=== PATIENT | female | born 1980 | race Asian ===

== ENCOUNTER 2018-08-14 10:21 | Inpatient (IN) | payer OTHER ==
[~2018-08-14] VITALS: Ht 157.5 cm; Wt 66.7 kg
[~2018-08-14 10:21] MED LIST: LEVO500T6 PO; SYN.1 PO
[2018-08-14 10:28] VITALS: BP 87/51
--- NOTE | 2018-08-14 10:39 | NUR ---
PATIENT WHEELCHAIR ASSISTED TO BED 4.
[2018-08-14] MEDS ORDERED: NACL 0.9% 1,000 ML IV ONE ×2 (10:44)
[2018-08-14] MEDS ORDERED: PIPERACILLIN/TAZOBACTAM 3.375 GM in DEXTROSE 5% 50 ML IV ONE (10:45)
[2018-08-14] MEDS ORDERED: ACETAMINOPHEN 325 MG TAB PO ONE (10:45)
--- NOTE | 2018-08-14 10:54 | NUR ---
LAB AT BEDSIDE
--- NOTE | 2018-08-14 10:58 | NUR ---
BIB BROTHER WITH C/O ABDOMINAL PAIN, +NAUSEA, NO VOMITING OR DIARRHEA. TEMP 102.0 ORALLY. HX OF DOWN SYNDROME. PT CONNECTED TO MONITOR. SIDERAIL UP X1 FOR SAFETY.
--- NOTE | 2018-08-14 11:01 | NUR ---
JUANA EMT AT BEDSIDE FOR EKG
--- NOTE | 2018-08-14 11:06 | NUR ---
PT AMB TO BATHROOM WITH ASSISTANCE
[2018-08-14] MEDS ORDERED: PIPERACILLIN/TAZOBACTAM 3.375 GM VIAL IV ONE (11:07)
--- NOTE | 2018-08-14 11:07 | NUR ---
X RAY AT BEDSIDE.
[2018-08-14 11:12] LABS: BASOPHILS % (AUTO) 0.2 % (0.0-2.0); EOSINOPHILS % (AUTO) 0.2 % (0.0-4.0); HEMATOCRIT 42.5 % (36-48); HEMOGLOBIN 14.2 g/dL (12.0-16.0); LYMPHOCYTES # (AUTO) 0.3 K/uL (2.5-16.5); LYMPHOCYTES % (AUTO) 3.1 % (20.5-51.1); MEAN CORPUSCULAR HEMOGLOBIN 33 pg (27-31); MEAN CORPUSCULAR HGB CONC 34 g/dL (33-37); MEAN CORPUSCULAR VOLUME 98.9 fL (80-94); MONOCYTES % (AUTO) 0.5 % (1.7-9.3); NEUTROPHILS # (AUTO) 8.5 K/uL (1.8-7.7); PLATELET COUNT (AUTO) 131 K/uL (140-450); RED CELL DISTRIBUTION WIDTH 13.5 % (11.6-13.7); WHITE BLOOD COUNT (AUTO) 8.8 K/uL (4.8-10.8)
--- NOTE | 2018-08-14 11:15 | NUR ---
NEW TEMP IS 101.3
[2018-08-14 11:25] LABS: PROTHROMBIN TIME 10.1 secs (10.8-13.4)
[2018-08-14 11:25] LABS: APPEARANCE,URINE SL CLOUDY (CLEAR); BILIRUBIN,URINE NEGATIVE (NEGATIVE); BLOOD, URINE 3+ (NEGATIVE); COLOR,URINE DARK YELLOW (YELLOW); LEUKOCYTE ESTERASE ,URINE 1+ (NEGATIVE); NITRITE, URINE POSITIVE (NEGATIVE); UGLUCOSE NEGATIVE (NEGATIVE)
[2018-08-14 11:30] LABS: RBC,URINE TOO NUMEROUS TO COUN /HPF (0-5); WBC,URINE >25 (MANY) /HPF (0-5)
[2018-08-14 11:31] LABS: ANION GAP 12.8 (8-16); CARBON DIOXIDE 25.7 mmol/L (21-32); POTASSIUM 3.5 mmol/L (3.5-5.1)
[2018-08-14 11:42] LABS: ALBUMIN 3.2 g/dL (3.4-5.0)
[2018-08-14] MEDS ORDERED: LORazepam 2 MG/ML VIAL IM/IVP PRN (12:15)
[2018-08-14] MEDS ORDERED: HYDROcodone/APAP 5/325 MG 1 TAB TAB PO PRN (12:15)
[2018-08-14] MEDS ORDERED: ACETAMINOPHEN 325 MG TAB PO PRN (12:15)
[2018-08-14] MEDS ORDERED: DOCUSATE SODIUM 100 MG GELCAP PO PRN (12:15)
[2018-08-14] MEDS ORDERED: MORPHINE SULFATE 2 MG/ML SYR IVP PRN (12:15)
[2018-08-14] MEDS ORDERED: ZOLPIDEM 5 MG TAB PO PRN (12:15)
[2018-08-14] MEDS ORDERED: ONDANSETRON 4 MG/2 ML VIAL IM/IVP PRN (12:15)
[2018-08-14] MEDS: NACL 0.9% 1,000 ML IV SCH ×2 (12:15→21:37)
[2018-08-14 12:49] LABS: PROTHROMBIN TIME 9.9 secs (10.8-13.4)
[2018-08-14 12:55] LABS: CHOL/HDL RATIO 2.9 (1-4.5); MAGNESIUM 1.9 mg/dL (1.8-2.4); PHOSPHORUS 2.7 mg/dL (2.5-4.9); THYROID STIMULATING HORMONE 4.77 uIU/mL (0.34-3.74)
--- NOTE | 2018-08-14 13:00 | NUR ---
PT ARRIVED ON THE UNIT. RECEIVED HANDOFF REPORT FROM ER NURSE. ELYSE. PT IS AWAKE IN BED. PT APPEARS STABLE AND IN NO APPARENT DISTRESS. ALL SAFETY MEASURES ARE IN PLACE. BROTHER IS AT PT BEDSIDE. WILL CONTINUE TO MONITOR.
--- NOTE | 2018-08-14 13:03 | NUR ---
Pt admitted to telemetry floor Rm 110B, report given to MARIYA Nguyễn. Transfer of care at 1300, pt in stable condition.
[2018-08-14 13:10] LABS: BARBITURATE, URINE NEG. ng/ml (NEG <=200); BENZODIAZEPINE, URINE NEG. ng/mL (NEG <=200); CANNABINOID, URINE NEG. ng/mL (NEG <=50); COCAINE, URINE NEG. ng/mL (NEG <=300); OPIATE, URINE NEG. ng/mL (NEG <=2000); PHENCYCLIDINE SCREEN,URINE NEG. ng/mL (NEG <=25)
--- NOTE | 2018-08-14 13:46 | NUR ---
PT HAS PERSONAL WHEELCHAIR AT BEDSIDE. DOCUMENTED IN PERSONAL BELONGINGS. PLACED PT VIBRATOR OPERATOR WHEEL CHAIR.
--- NOTE | 2018-08-14 15:51 | NUR ---
BROTHER IS MAIN CONTACT/ CONSERVATOR LALITA CASSIDY [phone]
[2018-08-14 16:05] VITALS: BP 95/64
--- NOTE | 2018-08-14 17:05 | NUR ---
FREQUENT ROUNDING PT IS STABLE AND IN NO APPARENT DISTRESS. ALL SAFETY MEASURES ARE IN PLACE. IVF INFUSING WITH NO SIGNS OF INFILTRATION OR INFLAMMATION. WILL CONTINUE TO MONITOR.
[2018-08-14] MEDS ORDERED: PIPER/TAZO 3.375GM/D5W PREMIX 50 ML IV SCH (18:00)
--- NOTE | 2018-08-14 18:39 | NUR ---
PT IS AWAKE IN BED. PT IS STABLE AND APPEARS IN NO APPARENT DISTRESS. ALL SAFETY MEASURES ARE IN PLACE. IV SITE IS PATENT AND INFUSING AT 60ML/HR. IV SITE SHOWS NO SIGNS OF INFILTRATION OR INFLAMMATION.
--- NOTE | 2018-08-14 19:31 | NUR ---
ENDORSED PT TO CHIEF TALENT OFFICER RN. PT IS STABLE AND IN NO APPARENT DISTRESS, ALL SAFETY MEASURES ARE IN PLACE.
--- NOTE | 2018-08-14 19:32 | NUR ---
RECEIVED BEDSIDE REPORT FROM DAY SHIFT NURSE WENDI RN, PT STABLE, NO DISTRESS NOTED, IV TO L AC 18 G PATENT, INTACT, INFUSING WELL, IV TO R AC 18 PATENT, INTACT, SL, PT ON ROOM AIR, NO C/O PAIN AT THIS MOMENT, NO SOB, INITIAL ASSESSMENT DONE, ALL SAFETY PRECAUTION MET, BROTHER AT BEDSIDE, CALL LIGHT WITHIN REACH, WILL CONTINUE TO MONITOR.
[2018-08-14 20:00] VITALS: BP 92/32
--- NOTE | 2018-08-14 21:37 | NUR ---
DUE MEDICATION ADMINISTERED, PT TOLERATED WELL, NO DISTRESS NOTED, CALL LIGHT WITHIN REACH, WILL CONTINUE TO MONITOR.
[2018-08-15] VITALS: BP 112/52
--- NOTE | 2018-08-15 00:10 | NUR ---
CHECKED ON PT, V/S TAKEN, WITHIN PT BASELINE, CALL LIGHT WITHIN REACH, WILL CONTINUE TO MONITOR.
[2018-08-15] MEDS: NACL 0.9% 1,000 ML IV SCH ×3 (01:43→20:08)
--- NOTE | 2018-08-15 02:03 | NUR ---
PT SLEEPING, NO DISTRESS NOTED, CALL LIGHT WITHIN REACH, BROTHER AT BEDSIDE, WILL CONTINUE TO MONITOR.
--- NOTE | 2018-08-15 03:56 | NUR ---
CHECKED ON PT, PT RESTING, NO DISTRESS NOTED, V/S WITHIN NORMAL LIMITS, CALL LIGHTS WITHIN REACH, BROTHER AT BEDSIDE, WILL CONTINUE TO MONITOR.
[2018-08-15 04:05] VITALS: BP 109/58
[2018-08-15] MEDS: LEVOTHYROXINE 0.1 MG TAB PO SCH (06:09)
--- NOTE | 2018-08-15 07:19 | NUR ---
ENDORSED PT TO DAY SHIFT NURSE JORGE RN, PT STABLE, NO DISTRESS NOTED, CALL LIGHT WITHIN REACH.
--- NOTE | 2018-08-15 07:20 | NUR ---
RECEIVED BEDSIDE REPORT FROM IP COUNSEL NURSE. PATIENT IS AWAKE, ALERT AND ORIENTEDX3. NO SIGNS OF DISTRESS ON RA. SKIN HAS BRUISING IN BACK. PER IP COUNSEL NURSE PATIENT PUNCHED HER BACK D/T PAIN. PATIENT IS AMBULATORY. BROTHER AT BEDSIDE. PATIENT IS CONTINENT. IV ON R AC 18G INFUSING NS AT 150. CLEAN, DRY AND INTACT. TELE MONITOR IN PLACE. CALL LIGHT WITHIN REACH. WILL CONTINUE TO MONITOR THE PATIENT
[2018-08-15 07:49] LABS: BASOPHILS % (AUTO) 0.6 % (0.0-2.0); EOSINOPHILS # (AUTO) 0.1 K/uL (0-0.4); HEMATOCRIT 38.1 % (36-48); HEMOGLOBIN 12.8 g/dL (12.0-16.0); LYMPHOCYTES # (AUTO) 1.1 K/uL (2.5-16.5); LYMPHOCYTES % (AUTO) 13.5 % (20.5-51.1); MEAN CORPUSCULAR HEMOGLOBIN 33 pg (27-31); MEAN CORPUSCULAR HGB CONC 34 g/dL (33-37); MEAN CORPUSCULAR VOLUME 98.6 fL (80-94); MONOCYTES # (AUTO) 0.8 K/uL (0.8-1.0); MONOCYTES % (AUTO) 9.6 % (1.7-9.3); NEUTROPHILS % (AUTO) 75.3 % (42.2-75.2); PLATELET COUNT (AUTO) 120 K/uL (140-450); RED BLOOD CELL COUNT(AUTO) 3.86 MIL/uL (4.20-5.40); RED CELL DISTRIBUTION WIDTH 13.5 % (11.6-13.7); WHITE BLOOD COUNT (AUTO) 7.9 K/uL (4.8-10.8)
[2018-08-15 07:50] LABS: ANION GAP 11.2 (8-16); CARBON DIOXIDE 24.3 mmol/L (21-32); CREATININE 0.6 mg/dL (0.6-1.3); POTASSIUM 3.5 mmol/L (3.5-5.1)
[2018-08-15 08:00] VITALS: BP 113/57
[2018-08-15 08:12] LABS: MAGNESIUM 1.9 mg/dL (1.8-2.4); PHOSPHORUS 2.6 mg/dL (2.5-4.9)
[2018-08-15] MEDS: LACTOBACILLUS RHAMNOSUS GG 1 EACH CAP PO SCH (09:47)
--- NOTE | 2018-08-15 09:59 | NUR ---
ADMINISTERED MEDS. PROBIOTIC W CHOCOLATE PUDDING. HEPARIN INJECTION IN LLQ. PATIENT TOLERATED WELL. EDUCATED ON SIDE EFFECTS. PATIENT UNABLE TO VERBALIZE UNDERSTANDING AT THIS TIME D/T DOWN SYNDROME. WILL CONTINUE TO MONITOR
--- NOTE | 2018-08-15 10:51 | NUR ---
PATIENT GIVEN A COLORING BOOK AND CRAYONS WITH STICKERS. BROTHER AT BEDSIDE. NO SIGNS OF DISTRESS. WILL CONTINUE TO MONITOR THE PATIENT.
[2018-08-15 12:00] VITALS: BP 94/52
--- NOTE | 2018-08-15 12:34 | NUR ---
PATIENT EATING LUNCH. NO SIGNS OF DISTRESS. FAMILY AT BEDSIDE
--- NOTE | 2018-08-15 14:00 | NUR ---
PATIENT SITTING IN BED. NO SIGNS OF DISTRESS. BROTHER AT BEDSIDE
--- NOTE | 2018-08-15 15:42 | NUR ---
PATIENTS BROTHER WANTS TO KNOW RESULTS OF THE SCAN. TOLD DR ELIAS TO GO IN TO TALK TO THE PATIENT, SHE SAID SHE WILL GO AND TALK TO THE PATIENT AND FAMILY IN 5MINS.
[2018-08-15 16:00] VITALS: BP 99/55
--- NOTE | 2018-08-15 17:40 | NUR ---
ADMINISTERED PRN CONSTIPATION MED. PATIENT TOLERATED WELL. EDUCATED ON SIDE EFFECTS. BROTHER VERBALIZED UNDERSTANDING
--- NOTE | 2018-08-15 19:32 | NUR ---
gave bedside report to night time nanny nurse. patient endorsed in stable condition
--- NOTE | 2018-08-15 19:33 | NUR ---
RECEIVED BEDSIDE REPORT FROM DAY SHIFT NURSE. FAMILY AT BEDSIDE. PT IN STABLE CONDITION. NO S/S OF SOB, RESPIRATION EVEN AND UNLABORED IN RA. IV TO R AC 18 G INTACT, PATENT, AND ASYMPTOMATIC, INITIAL ASSESSMENT DONE, ALL SAFETY PRECAUTION MET, CALL LIGHT WITHIN REACH, WILL CONTINUE TO MONITOR
[2018-08-15 20:00] VITALS: BP 117/78
--- NOTE | 2018-08-15 20:08 | NUR ---
VS TAKEN, WITHIN PT'S BASELINE. BREATHING EVENLY AND UNLABORED IN RA. NO S/S OF SOB NOTE. CHANGED NS FLUID. WILL CONTINUE TO MONITOR.
--- NOTE | 2018-08-15 22:55 | NUR ---
PT SLEEPING. NO S/S OF SOB OR ANY DISCOMFORT NOTED. IV FLUID RUNNING WELL. BED IN LOW POSITION. CALL LIGHT WITHIN REACH.
[2018-08-16] VITALS: BP 100/56
--- NOTE | 2018-08-16 01:21 | NUR ---
PT SLEEPING IN BED COMFORTABLY. NO S/S OF ANY DISCOMFORT OR SOB. BREATHING EVEN AND UNLABORED. WILL CONTINUE TO MONITOR.
--- NOTE | 2018-08-16 03:25 | NUR ---
PT SLEEPING IN BED. NO S/S OF ANY DISCOMFORT. BED IN LOW POSITION. CALL LIGHT WITHIN REACH. WILL CONTINUE TO MONITOR.
[2018-08-16 04:00] VITALS: BP 102/46
[2018-08-16] MEDS: LEVOTHYROXINE 0.1 MG TAB PO SCH (05:31)
--- NOTE | 2018-08-16 05:31 | NUR ---
SYNTHROID GIVEN APPLE SAUCE. PT TOLERATED WELL. WILL CONTINUE TO MONITOR
[2018-08-16] MEDS ORDERED: SIMETHICONE 40 MG/0.6 ML PO PRN (06:25)
--- NOTE | 2018-08-16 06:26 | NUR ---
SYNTHROID GIVEN APPLE SAUCE. PT TOLERATED WELL. WILL CONTINUE TO MONITOR Addendum: 08/16/18 at 0627 by Ricarda Howard RN WRONG TIME
[2018-08-16] MEDS ORDERED: BISACODYL 10 MG SUPP RC SCH (07:00)
[2018-08-16 07:20] LABS: BASOPHILS # (AUTO) 0.1 K/uL (0.00-0.22); BASOPHILS % (AUTO) 0.8 % (0.0-2.0); EOSINOPHILS # (AUTO) 0.1 K/uL (0-0.4); EOSINOPHILS % (AUTO) 1.2 % (0.0-4.0); HEMATOCRIT 35.9 % (36-48); HEMOGLOBIN 12.1 g/dL (12.0-16.0); LYMPHOCYTES # (AUTO) 1.1 K/uL (2.5-16.5); LYMPHOCYTES % (AUTO) 16.7 % (20.5-51.1); MEAN CORPUSCULAR HEMOGLOBIN 33 pg (27-31); MEAN CORPUSCULAR HGB CONC 34 g/dL (33-37); MEAN CORPUSCULAR VOLUME 98.8 fL (80-94); MONOCYTES # (AUTO) 0.5 K/uL (0.8-1.0); NEUTROPHILS # (AUTO) 5.1 K/uL (1.8-7.7); NEUTROPHILS % (AUTO) 74.3 % (42.2-75.2); PLATELET COUNT (AUTO) 139 K/uL (140-450); RED BLOOD CELL COUNT(AUTO) 3.63 MIL/uL (4.20-5.40); RED CELL DISTRIBUTION WIDTH 13.3 % (11.6-13.7); WHITE BLOOD COUNT (AUTO) 6.9 K/uL (4.8-10.8)
--- NOTE | 2018-08-16 07:20 | NUR ---
RECEIVED BEDSIDE REPORT FROM SQUEEGEE OPERATOR NURSE. BROTHER AT BEDSIDE. PT AWAKE, ALERT, CONFUSED, HX OF DOWN SYNDROME. ABLE TO FOLLOW COMMANDS, OX2. NO S/S OF SOB, RESPIRATION EVEN AND UNLABORED IN ROOM AIR. IV TO R AC 18 G INTACT, PATENT, AND ASYMPTOMATIC, INITIAL ASSESSMENT DONE, DENIES PAIN. ALL SAFETY PRECAUTION MET, CALL LIGHT WITHIN REACH, WILL CONTINUE TO MONITOR
--- NOTE | 2018-08-16 07:30 | NUR ---
ENDORSED PT TO DAY SHIFT NURSEMANNY. PT IN STABLE CONDITION.
[2018-08-16 07:46] LABS: ANION GAP 10.6 (8-16); CARBON DIOXIDE 25.8 mmol/L (21-32); CREATININE 0.7 mg/dL (0.6-1.3); POTASSIUM 3.4 mmol/L (3.5-5.1)
[2018-08-16 07:49] LABS: PHOSPHORUS 3.8 mg/dL (2.5-4.9)
[2018-08-16 08:00] VITALS: BP 108/45
[2018-08-16] MEDS: LACTOBACILLUS RHAMNOSUS GG 1 EACH CAP PO SCH (08:30)
--- NOTE | 2018-08-16 08:54 | NUR ---
PATIENT HAS BEEN SCREENED AND CATEGORIZED HIGH NUTRITION RISK. PATIENT WILL BE SEEN WITHIN 1-2 DAYS OF ADMISSION. 08/16/[address]
[2018-08-16] MEDS ORDERED: SIMETHICONE 80 MG TAB.CHEW PO PRN (09:00)
--- NOTE | 2018-08-16 09:10 | NUR ---
PT EATING BY HERSELF, ALMOST DONE WITH WHOLE BREAKFAST TRAY. NO DISTRESS NOTED.
[2018-08-16] MEDS ORDERED: POTASSIUM CHLORIDE 10 MEQ TABER PO SCH (09:30)
[2018-08-16] MEDS ORDERED: LACT10CA PO (09:58)
[2018-08-16] MEDS ORDERED: CEPH500C16 PO (09:58)
--- NOTE | 2018-08-16 11:15 | NUR ---
DISCHARGE INSTRUCTIONS AND MEDS TEACHING GIVEN TO PT AND HER BROTHER LALITA. MADE THEM AWARE OF THE SCHEDULE APPT WITH DR ELISE AND RX HAS BEEN SENT TO [facility]. VERBALIZED UNDERSTANDING. REMOVED PT'S IV CATH, TIP INTACT, PRESSURE APPLIED. REMOVED TELE BOX AND WRIST BAND. PT WAS DRESSED. PROVIDED MAXI PAD AND FRESH UNDERWEAR. PT LEFT WITH HER BROTHER AND HAS TAKEN ALL HER BELONGINGS.
== END 2018-08-16 11:20 | disposition home or self-care (01) | DRG 871 ==
LOC: MED 10:21 → MTU 12:15
PROVIDERS: ADMIT Family Medicine; ATTEND Family Medicine
DX: A41.9 Sepsis, unspecified organism (principal); N17.0 Acute kidney failure with tubular necrosis; N39.0 Urinary tract infection, site not specified; E44.0 Moderate protein-calorie malnutrition; K56.7 Ileus, unspecified; E03.9 Hypothyroidism, unspecified; R65.20 Severe sepsis without septic shock; K59.00 Constipation, unspecified; N83.202 Unspecified ovarian cyst, left side; E87.6 Hypokalemia; E87.8 Other disorders of electrolyte and fluid balance, not elsewhere classified; E83.51 Hypocalcemia; Z68.26 Body mass index [BMI] 26.0-26.9, adult; Q90.9 Down syndrome, unspecified; Z79.899 Other long term (current) drug therapy; Z83.3 Family history of diabetes mellitus; Z80.9 Family history of malignant neoplasm, unspecified; Z82.49 Family history of ischemic heart disease and other diseases of the circulatory system
CPT/HCPCS: 36415; 71045; 74018; 76856; 80048; 80053; 80305; 81001; 81025; 83036; 83605; 83690; 83735; 83880; 84100; 84134; 84443; 84484; 84703; 85025; 85610; 85730; 87040; 87081; 87086; 87186; 93005; 96365; 99291; J0696; J1644; J2543; J7030; J7060; Q0092

== ENCOUNTER 2019-09-09 19:30 | Emergency (ER) | payer OTHER ==
[~2019-09-09] VITALS: Ht 157.5 cm; Wt 62.6 kg
[~2019-09-09 19:30] MED LIST changes: +CEPH500C16 PO; +LACT10CA PO; -LEVO500T6 PO
[2019-09-09 19:37] VITALS: BP 155/98
--- NOTE | 2019-09-09 19:45 | NUR ---
PT TRIAGED AND BACK TO LOBBY.
--- NOTE | 2019-09-09 19:50 | NUR ---
PT AMBULATED TO BED 01 WITH STEADY GAIT. GUARDIAN AT BEDSIDE.
--- NOTE | 2019-09-09 20:05 | NUR ---
PT BIB BROTHER WITH C/O ABD PAIN X 1 DAY. PT HAS DOWN SYNDROME, UNABLE TO PROVIDE INFO. BROTHER STATES PT POINTS TO HER ABD AND SAYS HURTS. PT CURRENTLY ON PERIOD AND FAMILY NOT SURE IF SHE'S HAVING MENSTRAUL CRAMPS OR UTI SYMPTOMS. NKA HYPOTHEYROIDISM, DOWN SYNDROME
--- NOTE | 2019-09-09 20:35 | NUR ---
MOVED TO ER BED 12
[2019-09-09 20:47] VITALS: BP 155/98
--- NOTE | 2019-09-09 20:47 | NUR ---
PT UNABLE TO GIVE URINE AT THE MOMENT. REFUSES STRAIGHT CATH.
--- NOTE | 2019-09-09 20:56 | NUR ---
AFTER ASKING AGAIN ABOUT URINE SAMPLE AGAIN, PT AGREES FOR STRAIGHT CATH TO OBTAIN URINE.
--- NOTE | 2019-09-09 21:00 | NUR ---
STRAIGHT CATHETERIZATION PERFORMED TO OBTAIN URINE SAMPLE. CHAPERONED BY KATTY MERAZ FOR PROCEDURE
--- NOTE | 2019-09-09 21:18 | NUR ---
XR AT BEDSIDE
--- NOTE | 2019-09-09 21:31 | NUR ---
Patient discharged with v/s stable. Written and verbal after care instructions given and explained. Patient alert, oriented and verbalized understanding of instructions. Ambulatory with steady gait. All questions addressed prior to discharge. ID band removed. Patient advised to follow up with PMD. Rx of PYRIDIUM, KEFLEX, MOTRIN, ZOFRAN given. Patient educated on indication of medication including possible reaction and side effects. Opportunity to ask questions provided and answered.
== END 2019-09-09 21:32 | disposition home or self-care (01) ==
LOC: MED 19:30
DX: N39.0 Urinary tract infection, site not specified (principal); R03.0 Elevated blood-pressure reading, without diagnosis of hypertension; E07.9 Disorder of thyroid, unspecified; K59.00 Constipation, unspecified; Z79.899 Other long term (current) drug therapy
CPT/HCPCS: 81002; 81025; 87086; 87186; 99283

== ENCOUNTER 2023-11-10 22:15 | Emergency (ER) | payer OTHER ==
[~2023-11-10] VITALS: Ht 154.9 cm; Wt 59.0 kg
[2023-11-10 22:42] VITALS: BP 132/82; PULSE 97; RESP 20; TEMP 98; O2SAT 98
[2023-11-11 03:16] LABS: APPEARANCE,URINE CLEAR (CLEAR); BILIRUBIN,URINE NEGATIVE (NEGATIVE); BLOOD, URINE 2+ (NEGATIVE); COLOR,URINE YELLOW (YELLOW); LEUKOCYTE ESTERASE ,URINE 1+ (NEGATIVE); NITRITE, URINE NEGATIVE (NEGATIVE); PROTEIN,URINE TRACE (NEGATIVE); UGLUCOSE NEGATIVE (NEGATIVE); UROBILINOGEN,URINE 0.2 EU/dL (0.2 - 1)
[2023-11-11 03:22] LABS: BACTERIA,URINE >30 (MANY) /HPF (None Seen); MUCUS,URINE 1+ /LPF (None Seen); SQUAMOUS EPITHELIAL CELL,UR 4-10 (MOD) /LPF (0-3 (FEW)); WBC,URINE 20-60 /HPF (0-5)
[2023-11-11] MEDS ORDERED: cefTRIAXone 1,000 MG VIAL ONE (03:54)
[2023-11-11] MEDS ORDERED: LIDOCAINE MPF 1% 5 ML ONE (03:54)
[2023-11-11] MEDS: cefTRIAXone 1,000 MG in LIDOCAINE MPF 1% 2.1 ML IM ONE (03:57)
[2023-11-11] MEDS ORDERED: NITR100C7 PO (04:17)
[2023-11-11 04:22] VITALS: BP 132/82; PULSE 97; RESP 20; TEMP 98; O2SAT 98
== END 2023-11-11 04:22 | disposition home or self-care (01) ==
LOC: MED 22:15
DX: N39.0 Urinary tract infection, site not specified (principal); E03.9 Hypothyroidism, unspecified; Z79.2 Long term (current) use of antibiotics; Z79.899 Other long term (current) drug therapy
CPT/HCPCS: 51701; 81001; 87086; 87186; 96372; 99283; J0696; J2001